=== PATIENT | male | born 1990 | race Two or more races ===

== ENCOUNTER 2024-04-05 15:48 | Emergency (ER) | payer OTHER ==
[2024-04-05 16:03] VITALS: BP 137/90; PULSE 82; RESP 18; TEMP 98.4; BMI 34.4
== END 2024-04-05 18:08 | disposition home or self-care (01) ==
LOC: JER 15:48 → JERFT 15:48
DX: F43.9 Reaction to severe stress, unspecified (principal); G47.9 Sleep disorder, unspecified
CPT/HCPCS: 93005; 93010; 99283-25